=== PATIENT | male | born 1975 | race Caucasian/White ===

== ENCOUNTER 2017-02-02 20:52 | Emergency (ER) | payer OTHER ==
[~2017-02-02] VITALS: Ht 177.8 cm; Wt 97.7 kg
[~2017-02-02 20:52] MED LIST: LORTAB 5/500 501 TAB PO; NAPROSYN500 MG PO; NO HOME MEDICATIONS; TUSS PO; ZITHROMAX 250M250 MG PO
[2017-02-02 20:58] VITALS: TEMP 98
[2017-02-02 21:26] LABS: BASO # 0.1 (0.0-0.2); BASO % 0.8 % (0.0-2.0); EOS # 0.4 (0.0-0.7); EOS % 3.5 % (0-4.0); GRAN # 6.4 (1.4-6.5); GRAN % 54.1 % (42.2-75.2); HEMATOCRIT 42.2 % (42.0-52.0); HEMOGLOBIN 14.5 g/dl (13.5-18.0); LYMPH # 4.1 (1.2-3.4); LYMPH % 34.3 % (20.0-51.0); MEAN CELL VOLUME 90 fl (80.0-100.0); MEAN CORPUSCULAR HEMOGLOBIN 31 pg (27.0-31.0); MEAN CORPUSCULAR HGB CONC 34 g/dl (33.0-37.0); MEAN PLATELET VOLUME 9.7 fl (7.4-10.4); MONO # 0.8 (0.1-0.6); MONO % 7.1 % (1.7-9.3); PLATELET COUNT 345 K/mm3 (130-400); RED BLOOD COUNT 4.69 M/mm3 (4.20-5.60); REDCELL DISTRIBUTION WIDTH-CV 12.7 % (11.5-14.5); WHITE BLOOD COUNT 11.9 K/mm3 (4.8-10.8)
[2017-02-02 21:38] LABS: ADJUSTED CALCIUM 8.8 mg/dL (8.4-10.2); ALBUMIN 4.1 gm/dL (3.5-5.0); BILIRUBIN,TOTAL 0.5 mg/dL (0.0-1.0); CALCIUM 8.9 mg/dL (8.4-10.2); CREATININE, serum 0.79 mg/dL (0.66-1.25); POTASSIUM 4.1 mmol/L (3.4-5.0); TOTAL PROTEIN 7.2 gm/dL (6.4-8.2)
[2017-02-02 22:37] LABS: PH 6 (5-8); SQUAMOUS EPITHELIAL None Seen /hpf; URINE APPEARANCE Clear; URINE BACTERIA None Seen /hpf; URINE BILIRUBIN Negative (NEGATIVE); URINE BLOOD Negative (NEGATIVE); URINE COLOR Yellow; URINE GLUCOSE Negative (NEGATIVE); URINE KETONE Negative (NEGATIVE); URINE RBC 0-2 /hpf; URINE UROBILINOGEN Negative (NEGATIVE); URINE WBC 0-2 /hpf
[2017-02-02] MEDS ORDERED: MIRALAX 255 GM255 GM PO (23:04)
[2017-02-02 23:15] VITALS: BP 124/74; PULSE 71
== END 2017-02-02 23:15 | disposition home or self-care (01) ==
LOC: COL.ER 20:52
PROVIDERS: Emergency Medicine
DX: R10.31 Right lower quadrant pain (principal); F17.210 Nicotine dependence, cigarettes, uncomplicated
CPT/HCPCS: J2270; J7030; Q9967

== ENCOUNTER 2019-07-21 09:00 | Outpatient (RCR) | payer OTHER ==
[~2019-07-21 09:00] MED LIST changes: +MIRALAX 255 GM255 GM PO
== END 2019-09-14 | disposition home or self-care (01) ==
LOC: MKS.ESL.PT
DX: M25.512 Pain in left shoulder (principal)

== ENCOUNTER 2021-09-12 17:56 | Emergency (ER) | payer OTHER ==
[~2021-09-12] VITALS: Ht 177.8 cm; Wt 99.5 kg
[2021-09-12 18:13] VITALS: TEMP 98.9
[2021-09-12 18:40] LABS: BASO # 0.1 K/mm3 (0.0-0.2); BASO % 0.8 % (0.0-2.0); EOS # 0.2 K/mm3 (0.0-0.7); EOS % 1.8 % (0.0-4.0); GRAN # 5.6 K/mm3 (1.4-6.5); HEMATOCRIT 43.2 % (42.0-52.0); HEMOGLOBIN 15.2 g/dl (13.5-18.0); LYMPH # 2.5 K/mm3 (1.2-3.4); LYMPH % 27.6 % (20.0-51.0); MEAN CELL VOLUME 86 fl (80.0-100.0); MEAN CORPUSCULAR HEMOGLOBIN 30 pg (27-31); MEAN CORPUSCULAR HGB CONC 35 g/dl (33.0-37.0); MEAN PLATELET VOLUME 9.7 fl (7.4-10.4); MONO # 0.7 K/mm3 (0.1-0.6); MONO % 7.6 % (1.7-9.3); PLATELET COUNT 238 K/mm3 (130-400); RED BLOOD COUNT 5.04 M/mm3 (4.20-5.60); REDCELL DISTRIBUTION WIDTH-CV 12.9 % (11.5-14.5)
[2021-09-12 18:56] LABS: ALANINE AMINOTRANSFERASE 11 U/L (0-55); ALBUMIN 4.1 gm/dL (3.5-5.0); ALKALINE PHOSPHATASE 56 U/L (40-150); ANION GAP 11 mmol/L (7-16); AST,SGOT 16 U/L (5-34); BILIRUBIN,TOTAL 0.6 mg/dL (0.2-1.2); BLOOD UREA NITROGEN 16 mg/dL (9-21); CALCIUM 8.5 mg/dL (8.4-10.2); CARBON DIOXIDE 21 mmol/L (22-29); CHLORIDE 108 mmol/L (98-107); CREATININE, serum 1.09 mg/dL (0.72-1.25); GLUCOSE 102 mg/dL (70-99); POTASSIUM 3.6 mmol/L (3.5-4.5); SODIUM 140 mmol/L (136-145); TOTAL PROTEIN 6.8 gm/dL (6.2-8.1)
[2021-09-12 19:04] LABS: TROPONIN-I < 0.010 ng/mL (0.00-0.033)
[2021-09-12 20:00] VITALS: BP 119/85; PULSE 67
== END 2021-09-12 20:12 | disposition home or self-care (01) ==
LOC: COL.ER 17:56
PROVIDERS: Physician Assistant
DX: R07.89 Other chest pain (principal); Z87.891 Personal history of nicotine dependence; Z28.310 Unvaccinated for COVID-19

== ENCOUNTER 2021-12-27 05:32 | Day surgery (SDC) | payer OTHER ==
[~2021-12-27] VITALS: Ht 177.8 cm; Wt 95.5 kg
[2021-12-27] MEDS ORDERED: NEURONTIN100 MG/CAP PO (06:06)
[2021-12-27] MEDS ORDERED: BACTRIM DS 8001 TAB PO (06:08)
[2021-12-27] MEDS ORDERED: ZOFRAN8 MG PO (06:08)
[2021-12-27] MEDS ORDERED: [UNRECOGNIZED DRUG - OTHER] (06:09)
[2021-12-27] MEDS ORDERED: ALOXII (06:09)
[2021-12-27] MEDS ORDERED: CINVANTI130 MG/18 IV (06:09)
[2021-12-27] MEDS ORDERED: ZOVIRAX 200MG200 MG PO (06:09)
[2021-12-27] MEDS ORDERED: FULPHILA SQ (06:10)
[2021-12-27 06:27] VITALS: BP 124/76; PULSE 76; TEMP 97.7
[2021-12-27 08:25] VITALS: BP 100/70; PULSE 79; TEMP 97.4
--- NOTE | 2021-12-27 08:25 | NUR ---
PT TO BAY 7 PER CART FROM PACU. REPORT RECEIVED. VS OBTAINED. PT RESTING COMFORTABLY. DENIES ANY NEEDS.
[2021-12-27 08:40] VITALS: BP 114/68; PULSE 75
[2021-12-27 08:55] VITALS: BP 116/70; PULSE 65
--- NOTE | 2021-12-27 08:55 | NUR ---
PT TOLERATING WATER. DENIES ANY OTHER NEEDS AT THIS TIME.
[2021-12-27 09:10] VITALS: BP 117/81; PULSE 67
--- NOTE | 2021-12-27 09:10 | NUR ---
PT TOLERATING MUFFINS. DENIES ANY ADDITIONAL NEEDS AT THIS TIME.
--- NOTE | 2021-12-27 09:40 | NUR ---
0925-IV DC'D AT THIS TIME. PT TOLERATED WELL. 0930-DISCHARGE EDUCATION COMPLETED WITH PT AND HIS . VERBALIZED UNDERSTANDING OF HOME AND FOLLOW UP CARE. ALL QUESTIONS ANSWERED. DISCHARGE PAPERWORK GIVEN TO PT. 0940-PT OFF UNIT PER WHEELCHAIR. PT DISCHARGED TO HOME WITH PER PERSONAL VEHICLE.
== END 2021-12-27 09:40 | disposition home or self-care (01) ==
LOC: SDCO 05:32
DX: C82.38 Follicular lymphoma grade IIIa, lymph nodes of multiple sites (principal); Z28.311 Partially vaccinated for COVID-19
CPT/HCPCS: C1788; J0690; J1644; J2704; J3010; J7120

== ENCOUNTER → 2023-02-16 | Outpatient (CLI) | payer OTHER ==
[~2023-02-16] MED LIST changes: +ALOXII; +BACTRIM DS 8001 TAB PO; +CINVANTI130 MG/18 IV; +FULPHILA SQ; +NEURONTIN100 MG/CAP PO; +ZOFRAN8 MG PO; +ZOVIRAX 200MG200 MG PO; +[UNRECOGNIZED DRUG - OTHER]
== END ==
LOC: CANSCHCLI → COL.CARD 12:39 → COL.PUL 13:00
DX: R05.9 Cough, unspecified (principal)